=== PATIENT | male | born 1955 | race Caucasian/White ===

== ENCOUNTER 2023-10-14 09:25 | Outpatient (CLI) | payer BC, SELFPAY | END 2023-10-14 09:26 | disposition home or self-care (01) | LOC: NFLDREF 10-16 10:58 | PROVIDERS: PCP Physician Assistant Medical; Referring Provider Physician Assistant Medical; Visit Provider Physician Assistant Medical | DX: R79.89 Other specified abnormal findings of blood chemistry (principal); I10 Essential (primary) hypertension; N52.9 Male erectile dysfunction, unspecified; R42 Dizziness and giddiness; Z12.5 Encounter for screening for malignant neoplasm of prostate; Z13.29 Encounter for screening for other suspected endocrine disorder; Z13.220 Encounter for screening for lipoid disorders | CPT/HCPCS: 80053; 80061; 82306; 84443; G0103 ==

== ENCOUNTER 2024-01-14 14:37 | Emergency (ER) | payer BC, SELFPAY ==
[2024-01-14 14:40] VITALS: BP 161/68; PULSE 103; RESP 22; TEMP 36.1; O2SAT 97; BMI 30.5
--- NOTE | 2024-01-14 14:50 | ED.WOUNDLAC ---
HPI - Wound/Laceration General Time Seen by Provider: 14:50 Date Seen: 01/14/24 Chief Complaint: Laceration/Wound Stated Complaint: L hand finger lac Time Seen by Provider: 01/14/24 14:49 Source: patient and RN notes reviewed Mode of arrival: ambulatory Limitations: no limitations History of Present Illness HPI narrative: This 68-year-old male is ambulatory into the ED with concern near avulsion of his left 5th finger at the end. He cut his finger on a floor joist when he was helping at a friend's house. Bleeding was controlled on arrival. This happened just prior to arrival. He has no idea of his last tetanus. He has the finger wrapped. Nothing else was injured. Related Data Previous Rx's ?Medication ?Instructions ?Recorded sildenafil 50 mg tablet (Viagra) 50 mg PO QDAY PRN sexual activity 01/27/23 #30 tabs lisinopril 20 mg tablet 20 mg PO DAILY #90 tabs 01/12/24 cephalexin 500 mg tablet 500 mg PO TID #15 tabs 01/14/24 Allergies Allergy/AdvReac Type Severity Reaction Status Date / Time meloxicam Allergy Mild altered Verified 12/31/23 12:09 mental status Review of Systems Narrative: As per HPI. [facility] Medical History Herpes zoster ?B02.9 - Zoster without complications (ICD-10) Surgical History History of inguinal hernia repair ?Z98.890 - Other specified postprocedural states (ICD-10) ?Z87.19 - Personal history of other diseases of the digestive system (ICD-10) Family History Other High blood pressure Social History Narrative: Former smoker Does not drink alcohol Does not use illicit drugs What is your current living situation?: I presently have a place to live Problems where you live: no known problems In the past 12 months, utilities in danger of being shut off: no In past 12 months, lack of transportation kept you from medical appts, meetings, work, or getting things needed for daily living: no In the past 12 mos, have been you worried that your food would run out before you had money to buy more?: never true In the past 12 mos, the food you bought just didn't last and you didn't have money to buy more?: never true Smoking Status: Current every day smoker How often does anyone, including family, friends and others, physically hurt you: never How often does anyone, including family, friends and others, insult or talk down to you: never How often does anyone, including family, friends and others, threaten you with harm: never How often does anyone, including family, friends and others, scream or curse at you: never Little interest or pleasure in doing things: several days Feeling down, depressed, or hopeless: several days Exam Const: Vital Signs, click to edit/add: Vital Signs - 24 hr 01/14/24 14:40 Temperature 97 F L Pulse Rate [Right Pulse Oximeter] 103 H Respiratory Rate 22 Blood Pressure [Ri ght Upper Arm] 161/68 H Pulse Oximetry 97 Oxygen Delivery Me thod Room Air This 68-year-old male is alert, interactive, no apparent distress. Bandages were removed inspection of his left 5th finger shows a laceration of the pad of his distal left finger. Medially the skin is intact but there is a curvilinear laceration over the volar surface of the distal pad beyond the DIP joint that extends up along the lateral nail fold. The nail bed in base are completely intact still. This does make a flap and I am able to lift the soft tissue up, cannot see the underlying bone. He still has preserved light touch sensation along the center of the pad of this finger. Did review with him that the nerve sensation from the medial portion of the finger may still be supplying but I would not be surprised that along the lateral nail fold that he might not have some numbness or tingling due to the extent of this injury. It may or may not come back. He still has full range of motion and preserved range of motion of this finger at this time. Did review with him that I do think we should proceed with imaging, will also check his tetanus status. Documenting provider has reviewed patient's vital signs: yes Course Course ED Course: Wound will need repair. Will order lidocaine to do a digital block and then allow staff to irrigate the wound. Will get x-ray imaging of this finger to see if there is any concern for bony involvement. Check sade for tetanus status but patient agrees to update his tetanus if needed. Will cover him with antibiotics at discharge for wound prophylaxis given the extent of this wound and the reflection into the deep tissues. Reevaluation(s) Time of Reevaluation #1: 15:38 Reevaluation #1: Patient is finger was anesthetized with digital block, about 6 mL of 1% lidocaine were used for the initial digital block. Will allow this to take effect and talk to nursing staff about irrigation of the wound at this time. Time of Reevaluation #2: 16:24 Reevaluation #2: After irrigation, patient consent was obtained for closure of his laceration. Standard sterile technique observed. He did have anesthesia from the digital block. Prior to closing the wound, did reinspect the deep structures, did not see any bony involvement, no ligamentous involvement. Patient demonstrated full flexion extension with normal strength of the distal finger. 8 simple interrupted sutures were placed using and a 4-0 Ethilon with good approximation of the skin structures and repair of the wound. Hemostasis was observed, no significant blood loss. Vital Signs Vital signs: Initial Vital Signs Temperature 97 F L 01/14/24 14:40 Temperature Source Temporal Artery Scan 01/14/24 14:40 Pulse Rate 103 H 01/14/24 14:40 Pulse Rhythm Regular 01/14/24 14:40 Pulse Strength 3+ Normal 01/14/24 14:40 Respiratory Rate 22 01/14/24 14:40 Blood Pressure 161/68 H 01/14/24 14:40 Blood Pressure Mean 99 01/14/24 14:40 Blood Pressure Position Sitting 01/14/24 14:40 Pulse Oximetry 97 01/14/24 14:40 Oxygen Delivery Method Room Air 01/14/24 14:40 Vital Signs Temperature 97 F L 01/14/24 14:40 Pulse Rate 103 H 01/14/24 14:40 Respiratory Rate 22 01/14/24 14:40 Blood Pressure 161/68 H 01/14/24 14:40 Pulse Oximetry 97 01/14/24 14:40 Oxygen Delivery Method Room Air 01/14/24 14:40 Temperature 97 F L 01/14/24 14:40 Pulse Rate 103 H 01/14/24 14:40 Respiratory Rate 22 01/14/24 14:40 Blood Pressure 161/68 H 01/14/24 14:40 Pulse Oximetry 97 01/14/24 14:40 Oxygen Delivery Method Room Air 01/14/24 14:40 Medications Administered Medications: Discontinued Medications Generic Name Dose Route Start Last Admin Trade Name Freq PRN Reason Stop Dose Admin Diphtheria/Tetanus/Acell Pertussis 0.5 ml 01/14/24 15:10 01/14/24 15:23 Tetanus/Diphth/Pertussis 0.5 Ml Syringe IM 01/14/24 15:11 0.5 ml .ONCE ONE Administration MDM - Wound/Laceration Imaging Data XR finger: Attestation: I have reviewed the pertinent imaging results. Radiologist's impression: Patient: LOTUS RICHTER Facility:?[facility] Patient ID:?[id number] Site Patient ID:?[id number]. Site :?[id number] Study:?XRay-Extremity Left 5TH FINGER 3V-01/14/2024 3:41:25 PM Ordering Physician:Dillon Squires Final Report: Indication: Trauma. Technique: Three views left 5th finger. Comparison: None. Findings/Impression: No acute displaced fracture or malalignment. Soft tissue swelling with associated distal laceration. Joint spaces are maintained. Bony mineralization is age appropriate. Dictated by Kofi Bradford MD @ 01/14/2024 3:52:26 PM (Electronic Signature) Discharge Plan Discharge Clinical Impression: Finger laceration Qualifiers: Encounter type: initial encounter Finger: little finger Damage to nail status: without damage Foreign body presence: without foreign body Laterality: left Qualified Code(s): S61.217A - Laceration without foreign body of left little finger without damage to nail, initial encounter Patient Disposition: Home, Self-Care Condition: Stable Instructions: Care For Your Stitches (ED), Finger Laceration (ED) Additional Instructions: Tetanus was updated today with Tdap. Need to keep this wound clean and dry outside of washing your hands and showering. Use bandages in bacitracin to keep this wound clean and dry while working or out in public. Take Keflex to help with any infection at as prescribed. If there is concern for the wound becoming infected as reviewed in the handouts, please seek re-evaluation. Otherwise, need to schedule clinic appointment in about 10 to 14 days to assess the wound for suture removal. Given the depth and the extent of this laceration, do want a longer length to sutures being in place for full wound healing. Activity Level: Activity as Tolerated Prescriptions: New cephalexin 500 mg tablet 500 mg PO TID Qty: 15 0RF No Action sildenafil [Viagra] 50 mg tablet 50 mg PO QDAY PRN (Reason: sexual activity) Qty: 30 8RF Rx Instructions: Take 1 tab 1hr prior to intercourse. lisinopril 20 mg tablet 20 mg PO DAILY Qty: 90 3RF Follow Up/Referrals: Dipti Nair PA-C [Primary Care Provider] - Stand Alone Forms: [facility] Info Instructions
--- NOTE | 2024-01-14 15:04 | CRLHL7_ITS ---
For Patients: As a result of the Cures Act, medical imaging exams and procedure reports are released immediately into your electronic medical record. You may view this report before your referring provider. If you have questions, please contact your health care provider. Indication: Trauma. Technique: Three views left 5th finger. Comparison: None. Findings/Impression: No acute displaced fracture or malalignment. Soft tissue swelling with associated distal laceration. Joint spaces are maintained. Bony mineralization is age appropriate. Dictated by Kofi Bradford MD @ 01/14/2024 3:52:26 PM (Electronically Signed)
[2024-01-14] MEDS: TETANUS/DIPHTH/PERTUSSIS 0.5 ML SYRINGE IM (15:23)
== END 2024-01-14 16:43 | disposition home or self-care (01) ==
PROVIDERS: Emergency Provider Family Medicine; PCP Physician Assistant Medical
DX: S61.217A Laceration without foreign body of left little finger without damage to nail, initial encounter (principal); W23.0XXA Caught, crushed, jammed, or pinched between moving objects, initial encounter; Z23 Encounter for immunization
CPT/HCPCS: 12001; 73140; 90471; 90715; 99283